=== PATIENT | male | born 1950 | race African-American/Black ===

== ENCOUNTER 2017-09-05 10:24 | Emergency (ER) | payer OTHER ==
[~2017-09-05] VITALS: Ht 167.6 cm; Wt 61.0 kg
[2017-09-05 15:25] VITALS: BP 120/60
== END 2017-09-05 15:25 | disposition home or self-care (01) ==
LOC: ER 10:24
DX: H11.31 Conjunctival hemorrhage, right eye (principal); J32.9 Chronic sinusitis, unspecified
CPT/HCPCS: 99282